=== PATIENT | female | born 1965 | race Two or more races ===

== ENCOUNTER 2022-11-14 16:52 | Emergency (ER) | payer OTHER ==
[~2022-11-14] VITALS: Ht 152.4 cm; Wt 96.0 kg
[2022-11-14 17:16] LABS: HEMOGLOBIN 12.6 g/dL (12.0-16.0); NEUTROPHILS # (AUTO) 1.9 K/uL (1.8-7.7); RED CELL DISTRIBUTION WIDTH 13.3 % (11.5-14.5)
[2022-11-14 17:19] LABS: BASOPHILS % (AUTO) 1.6 % (0.0-2.0); HEMATOCRIT 37.4 % (36-46); LYMPHOCYTES # (AUTO) 1.9 K/uL (1.0-4.8); LYMPHOCYTES % (AUTO) 43.8 % (22.0-44.0); MEAN CORPUSCULAR HEMOGLOBIN 34.1 pg (26.0-34.0); MEAN CORPUSCULAR HGB CONC 33.6 G/dL (31.0-37.0); MEAN CORPUSCULAR VOLUME 101 fL (80-100); MONOCYTES # (AUTO) 0.3 K/uL (0.1-1.0); MONOCYTES % (AUTO) 7.8 % (2.0-9.0); NEUTROPHILS % (AUTO) 43.8 % (40.0-70.0); PLATELET COUNT (AUTO) 129 K/uL (150-450); RED BLOOD CELL COUNT(AUTO) 3.69 MIL/uL (4.00-5.20)
[2022-11-14 17:29] LABS: ANION GAP 8 mmol/L (8-16); CARBON DIOXIDE 28 mmol/L (22-29); CHLORIDE 105 mmol/L (98-107); CREATININE 0.82 mg/dL (0.60-1.30); GLOMERULAR FILTR. RATE CALC > 60 mL/min (>60); GLUCOSE,RANDOM 101 mg/dL (70-110); POTASSIUM 3.5 mmol/L (3.5-5.1); SODIUM SERUM 141 mmol/L (136-145); UREA NITROGEN, BLOOD 12 mg/dL (7-18)
[2022-11-14 17:33] LABS: PROTHROMBIN TIME 10.3 SEC (9.4-11.6)
[2022-11-14 17:34] LABS: ALANINE AMINOTRANSFERASE 24 U/L (12-78); ALBUMIN 3.8 g/dL (3.4-5.0); ALKALINE PHOSPHATASE 81 U/L (46-116); ASPARTATE AMINOTRANSFERASE 23 U/L (15-37); BILIRUBIN,TOTAL 0.5 mg/dL (0.1-1.0); TOTAL PROTEIN, SERUM 7.3 g/dL (6.4-8.2)
[2022-11-14 17:43] LABS: B-TYPE NATRIURETIC PEPTIDE 21 pg/mL (0-100)
[2022-11-14] MEDS ORDERED: ALBUTEROL SULFATE 2.5 MG/0.5 ML NEB SOLUTION NEB ONE ×2 (17:45→18:30)
[2022-11-14] MEDS ORDERED: IPRATROPIUM BROMIDE 0.5 MG/2.5 ML NEB SOLUTION NEB ONE ×2 (17:45→18:30)
[2022-11-14] MEDS ORDERED: MethylPREDNISolone SOD SUCC 125 MG/2 ML VIAL IVP ONE (18:15)
[2022-11-14 19:05] LABS: COVID AG,FIA SOURCE NASOPHARYNGEAL
[2022-11-14 19:30] LABS: INFLUENZA TYPE A NEGATIVE FOR TYPE A (NEGATIVE); INFLUENZA TYPE B NEGATIVE FOR TYPE B (NEGATIVE)
[2022-11-14] MEDS ORDERED: PRED-554 PO (19:35)
[2022-11-14] MEDS ORDERED: ALBUTEROL SULFATE HFA 90 MCG/PUFF 8 GM INHALER IH ONE (19:45)
[2022-11-14 20:05] VITALS: BP 129/83
== END 2022-11-14 20:22 | disposition home or self-care (01) ==
LOC: EMS 16:55
DX: J44.1 Chronic obstructive pulmonary disease with (acute) exacerbation (principal); Z20.822 Contact with and (suspected) exposure to COVID-19
CPT/HCPCS: 99291; 94060; 96374; 71045; 87426; 80053; 83880; 84484; 85025; 85610; 85730; 87804; 36415; 94640; 93005; J2930; J3535; J7613

== ENCOUNTER 2024-05-27 01:45 | Emergency (ER) | payer OTHER ==
[~2024-05-27] VITALS: Ht 152.4 cm; Wt 100.0 kg
[~2024-05-27 01:45] MED LIST: ALBU18HF12 IH; AZIT500T4 PO; MONT-35 PO; PRED-729 PO
[2024-05-27 02:51] LABS: APPEARANCE,URINE CLEAR (CLEAR); BILIRUBIN,URINE NEGATIVE (NEGATIVE); COLOR,URINE COLORLESS (YELLOW); GLUCOSE, URINE (UA) TRACE mg/dL (NEGATIVE); KETONES,URINE NEGATIVE (NEGATIVE); LEUKOCYTE ESTERASE ,URINE NEGATIVE (NEGATIVE); NITRATE,URINE NEGATIVE (NEGATIVE); OCCULT BLOOD,URINE NEGATIVE (NEGATIVE); PH,URINE 5.5 (5.0-8.0); PROTEIN,URINE TRACE mg/dL (NEGATIVE); SPECIFIC GRAVITIY, URINE 1.015 (1.003-1.030); UROBILINOGEN,URINE <=1.0 mg/dL (<=1.0)
[2024-05-27 03:43] VITALS: TEMP 97.3
[2024-05-27] MEDS: IBUPROFEN 600 MG TABLET PO ONE (04:44)
[2024-05-27 05:09] VITALS: BP 124/77; PULSE 78; RESP 16
== END 2024-05-27 05:46 | disposition home or self-care (01) ==
LOC: EMS 01:45
DX: M54.30 Sciatica, unspecified side (principal); J45.909 Unspecified asthma, uncomplicated; Z98.890 Other specified postprocedural states
CPT/HCPCS: 81003; 99283

== ENCOUNTER 2024-06-27 22:23 | Emergency (ER) | payer OTHER ==
[~2024-06-27] VITALS: Ht 162.6 cm; Wt 102.3 kg
[2024-06-27 22:29] VITALS: TEMP 98.9
[2024-06-27] MEDS: ACETAMINOPHEN 500 MG TABLET PO ONE (23:27)
[2024-06-27] MEDS: LIDOCAINE 5% TRANSDERMAL PATCH TD ONE (23:27)
[2024-06-27 23:30] VITALS: BP 119/64; PULSE 78; RESP 17
[2024-06-27] MEDS: OxyCODONE HCL 5 MG IR TABLET PO ONE (23:36)
[2024-06-27 23:38] LABS: APPEARANCE,URINE CLEAR (CLEAR); BILIRUBIN,URINE NEGATIVE (NEGATIVE); COLOR,URINE LIGHT YELLOW (YELLOW); GLUCOSE, URINE (UA) NEGATIVE (NEGATIVE); KETONES,URINE NEGATIVE (NEGATIVE); LEUKOCYTE ESTERASE ,URINE SMALL (NEGATIVE); NITRATE,URINE NEGATIVE (NEGATIVE); OCCULT BLOOD,URINE NEGATIVE (NEGATIVE); PH,URINE 5.5 (5.0-8.0); PROTEIN,URINE NEGATIVE (NEGATIVE); SPECIFIC GRAVITIY, URINE 1.014 (1.003-1.030); UROBILINOGEN,URINE <=1.0 mg/dL (<=1.0)
[2024-06-27 23:47] LABS: BACTERIA,URINE None Seen /HPF (None Seen); RBC,URINE None Seen /HPF (0-2); SQUAMOUS EPITHELIAL CELL,UR Few /LPF (None Seen)
[2024-06-27] MEDS ORDERED: ACET-3385 PO (23:51)
[2024-06-27] MEDS ORDERED: IBUP-1492 PO (23:51)
[2024-06-27] MEDS ORDERED: LIDO700A15 TP (23:51)
== END 2024-06-28 01:14 | disposition home or self-care (01) ==
LOC: EMS 22:23
DX: S39.012A Strain of muscle, fascia and tendon of lower back, initial encounter (principal); J45.909 Unspecified asthma, uncomplicated; Z98.890 Other specified postprocedural states; X50.3XXA Overexertion from repetitive movements, initial encounter; Y93.89 Activity, other specified; Y92.89 Other specified places as the place of occurrence of the external cause; Y99.0 Civilian activity done for income or pay
CPT/HCPCS: 81001; 99284; Z7502; Z7610

== ENCOUNTER → 2025-10-11 | Day surgery (SDC) | payer OTHER ==
[~2025-10-11] VITALS: Ht 149.9 cm; Wt 98.9 kg
[~2025-10-11] MED LIST changes: +ACET-3385 PO; +ALBUTEROL SULFATE 2.5 MG/0.5 ML NEB SOLUTION NEB ONE; +BENZOCAINE 20% 50 MCG/SPRAY 57 GM ONE; +FentaNYL CITRATE PF 100 MCG/2 ML VIAL ONE; +IBUP-1492 PO; +LIDO-57 TP; +LIDOCAINE 2% 11 ML JELLY ONE; +LIDOCAINE 4% 50 ML SOLUTION ONE; +MIDAZOLAM HCL 2 MG/2 ML VIAL ONE; +PANT-31 PO; +SODIUM CHLORIDE 0.9% 1,000 ML ONE
[2025-10-11] MEDS: SODIUM CHLORIDE 0.9% 1,000 ML IV ONE (07:33)
[2025-10-11 09:58] VITALS: PULSE 75; RESP 16; O2SAT 100
== END | disposition home or self-care (01) ==
LOC: SURGERY 06:47
PROVIDERS: ATTEND Internal Medicine Critical Care Medicine
DX: J38.4 Edema of larynx (principal); B37.0 Candidal stomatitis; R05.3 Chronic cough; R06.2 Wheezing; R04.2 Hemoptysis; J44.89 Other specified chronic obstructive pulmonary disease; Z98.890 Other specified postprocedural states; Z82.49 Family history of ischemic heart disease and other diseases of the circulatory system
CPT/HCPCS: 31625; 31624; 87206; 87101; 87220; 87070; 88108; 87186; 31623; 71045; 87015; J3010; J2250; J2919; J7030; J7613; Z7610